=== PATIENT | female | born 1975 | race Caucasian/White ===

== ENCOUNTER 2025-06-06 13:44 | Emergency (ER) | payer SELFPAY ==
[~2025-06-06] VITALS: Ht 170.2 cm; Wt 98.0 kg
[2025-06-06 14:32] VITALS: BP 133/75; TEMP 98.2
[2025-06-06 14:34] VITALS: PULSE 91; RESP 16; O2SAT 96
--- NOTE | 2025-06-06 14:55 | ED.PDOC ---
History of Present Illness Chief Complaint: weakness Comments pt reportedly has a history of TIAs. pt started to feel profoundly weak at around 2-4pm yesterday. she has a hard time even lifting her head. no trouble speaking. no headaches Time Seen by MD: 13:54 Reviewed Notes: Nurses Notes, Medications, Allergies Allergies: Coded Allergies: NO KNOWN ALLERGIES (Unverified , 06/06/25) Information Source: Patient, Spouse Mode of Arrival: Wheelchair Severity: Moderate Timing: Days Duration: Since onset Past Medical History PAST MEDICAL HISTORY: TIA Surgical History: Denies all surgeries MYSQL DBA History: No Pertinent MYSQL DBA History Family History Family History: Reviewed,noncontributory to illness, No family hx of Cancer, No family hx of DM, No family hx of Heart halle, No family hx of HTN, No family hx o fKidney halle, No family hx of Liver halle, No family hx of Lung halle, No family hx of Stroke Social History Smoker: Non-Smoker Alcohol: Denies ETOH Use Drugs: Denies Drug Use Constitutional: denies: chills, diaphoresis, fatigue, fever, malaise, sweats, weakness, others EENTM: denies: blurred vision, double vision, ear bleeding, ear discharge, ear drainage, ear pain, ear ringing, eye pain, eye redness, hearing loss, mouth pain, mouth swelling, nasal discharge, nose bleeding, nose congestion, nose pain, photophobia, tearing, throat pain, throat swelling, voice changes, others Respiratory: denies: cough, hemoptysis, orthopnea, SOB at rest, shortness of breath, SOB with excertion, stridor, wheezing, others Cardiovascular: denies: chest pain, dizzy spells, diaphoresis, Dyspnea on exertion, edema, irregular heart beat, left arm pain, lightheadedness, palp itations, PND, syncope, others Gastrointestinal: denies: abdomen distended, abdominal pain, blood streaked bowels, constipated, diarrhea, dysphagia, difficulty swallowing, hematemesis, melena, nausea, poor appetite, poor fluid intake, rectal bleeding, rectal pain, vomiting, others Genitourinary: denies: abnormal vagina bleeding, burning, dyspareunia, dysuria, flank pain, frequency, hematuria, incontinence, pain, , vagina discharge, urgency, others Neurological: reports: weakness; denies: dizziness, fainting, headache, left sided numbness, left sided weakness, numbness, paresthesia, pre-existing deficit, right sided numbness, right sided weakness, seizure, speech problems, tingling, tremors, others Musculoskeletal: denies: back pain, gout, joint pain, joint swelling, muscle pain, muscle stiffness, neck pain, others Integumetry: denies: bruises, change in color, change in hair/nails, dryness, laceration, lesions, lumps, rash, wounds, others Allergic/Immunocompromised: denies: Difficulty Healing, Frequent Infections, Hives, Itching, others Hematologic/Lymphatic: denies: anemia, blood clots, easy bleeding, easy bruising, swollen glands, others Endocrine: denies: excessive hunger, excessive sweating, excessive thirst, excessive urination, flushing, intolerance to cold, intolerance to heat, unexplained weight gain, unexplained weight loss, others Psychiatric: denies: anxiety, bipolar disorder, depression, hopeless, panic disorder, schizophrenia, sleepless, suicidal, others All Other Systems: Reviewed and Negative Physical Exam General Appearance: No Apparent Distress, Normal, Other (sitting with head slumped to right, but can sit up and lean forward. normal speech, but anxious) HEENT: Normal ENT Inspection, Pharynx Normal, TMs Normal Neck: Full Range of Motion, Non-Tender, Normal, Normal Inspection Respiratory: Chest Non-Tender, Lungs Clear, No Accessory Muscle Use, No Respiratory Distress, Normal Breath Sounds Cardiovascular: No Edema, No JVD, No Murmur, No Gallop, Normal Peripheral Pulses, Regular Rate/Rhythm Breast Exam: Deferred Gastrointestinal: No Organomegaly, Non Tender, No Pulsatile Mass, Normal Bowel Sounds, Soft Genitalia: Deferred Pelvic: Deferred Rectal: Deferred Extremities: No calf tenderness, Normal capillary refill, Normal inspection, Normal range of motion, Non-tender, No pedal edema Musculoskeletal : Apperance: Normal Neurologic: Alert, dice table person II-XII nml as Tested, No Motor Deficits, Normal Affect, Normal Mood, No Sensory Deficits Cerebellar Function: Normal Reflexes: Normal Skin: Dry, Normal Color, Warm Lymphatic: No Adenopathy Was a procedure done? Was a procedure done?: No Differential Dx Considerations may include: CVA, anxiety, hypoglycemia, hypokalemia, MS exacerbation. X-Ray, Labs, Meds, VS Vital Signs Date Time Temp Pulse Resp B/P (MAP) Pulse Ox O2 Delivery O2 Flow Rate FiO2 06/06/25 14:34 91 16 96 Room Air* 0 21 06/06/25 14:32 98.2 91 18 133/75 (94) 96 98.2 06/06/25 13:48 98.1 96 17 118/80 97 98.1 Lab Test 06/06/25 16:53 06/06/25 16:25 06/06/25 15:05 Range/Units Troponin I High Sensitivity Pending < 3 L </=34 ng/L Urine Color Pending Urine Clarity Pending Urine pH Pending Urine Specific [place] Pending Urine Protein Pending Urine Ketones Pending Urine Blood Pending Urine Nitrite Pending Urine Bilirubin Pending Urine Urobilinogen Pending Urine Leukocyte Esterase Pending Urine RBC Pending Urine Microscopic WBC Pending Urine Squamous Epithelial Cells Pending Urine Bacteria Pending Urine Glucose Pending White Blood Count 9.5 4.4-10.8 10^3/uL Red Blood Count 5.38 H 4.0-5.20 10^6/uL Hemoglobin 16.9 H 12.2-16.2 g/dL Hematocrit 49.1 H 36.0-46.0 % Mean Corpuscular Volume 91.1 80.0-100.0 fL Mean Corpuscular Hemoglobin 31.3 28.0-32.0 pg Mean Corpuscular Hemoglobin Concent 34.4 32.0-36.0 g/dL Red Cell Distribution Width 12.7 11.8-14.3 % Platelet Count 261 140-450 10^3/uL Mean Platelet Volume 8.8 6.9-10.8 fL Neutrophils (%) (Auto) 81.3 H 37.0-80.0 % Lymphocytes (%) (Auto) 13.6 10.0-50.0 % Monocytes (%) (Auto) 4.3 0.0-12.0 % Eosinophils (%) (Auto) 0.3 0.0-7.0 % Basophils (%) (Auto) 0.5 0.0-2.0 % Neutrophils # (Auto) 7.7 1.6-8.6 10 ^3/uL Lymphocytes # (Auto) 1.3 0.4-5.4 10 ^3/uL Monocytes # (Auto) 0.4 0-1.3 10 ^3/uL Eosinophils # (Auto) 0 0-0.8 10 ^3/uL Basophils # (Auto) 0.1 0-0.2 10 ^3/uL Nucleated Red Blood Cells 0.0 % Sodium Level 143 136-145 mmol/L Potassium Level 3.6 3.5-5.1 mmol/L Chloride Level 105 98-107 mmol/L Carbon Dioxide Level 28 20-31 mmol/L Anion Gap 10 5-15 Blood Urea Nitrogen 18 9-23 mg/dL Creatinine 0.98 0.550-1.02 mg/dL Glomerular Filtration Rate Calc 71 >90 mL/min BUN/Creatinine Ratio 18.4 10.0-20.0 Serum Glucose 92 74-106 mg/dL Calcium Level 9.9 8.7-10.4 mg/dL Time of 1ST Reevaluation: 17:55 Reevaluation 1ST: Eloped Patient Education/Counseling: Pt Unresponsive (Eloped) Family Education/Counseling: No Family Present (Eloped) Comments This is a patient who presents with total body weakness. Started since 2-3 BM yesterday examination was fairly unremarkable other than the fact that the patient feels weak all over. The workup is unremarkable. When I went to assessed the patient again she was no where to be found. I look for the patient's several times as well as my scribe and patient is no were in the parking lot, lobby or anywhere in the ER or in the hallways. SEPSIS Sepsis Screen Date sepsis recognized/suspect: Jun 06, 2025 Time Sepsis recognized/suspect: 1348 Recent Procedure: No On Antibiotic Therapy: No Respiratory Rate >20: No Heart Rate >90: No Temp<36 C (96.8 F) or >38.3 C: No SBP <90 or MAP <65 mmHG: No New Acute Mental Status Change: No Is the patient on CPAP, BIPAP,: No Physician Orders Continuous Ekg Monitoring 08,12,16,20,00,04 (06/06/25 14:44) Electrocardigram (06/06/25 14:44) Chest Xray 1 View (06/06/25 14:44) Head Without Contrast (06/06/25 14:44) Urinalysis (06/06/25 14:44) Troponin-I Hs (06/06/25 15:44) Troponin-I Hs (06/06/25 17:44) Electrocardigram (06/06/25 15:44) Electrocardigram (06/06/25 17:44) Vital Signs Date Time Temp Pulse Resp B/P (MAP) Pulse Ox O2 Delivery O2 Flow Rate FiO2 06/06/25 14:34 91 16 96 Room Air* 0 21 06/06/25 14:32 98.2 91 18 133/75 (94) 96 98.2 06/06/25 13:48 98.1 96 17 118/80 97 98.1 Laboratory Tests Test 06/06/25 15:05 White Blood Count 9.5 10^3/uL (4.4-10.8) Departure 1 Departure Time of Disposition: 17:56 Impression: Primary Impression: Generalized weakness Disposition: 07 LEFT AWOL/ELOPED Condition: Other (Unknown) Critical Care Note Critical Care Time?: No Stability Stability form required: CHRISTIE Osborne MD Jun 06, 2025 14:55
--- NOTE | 2025-06-06 15:15 | DVH ---
CHEST RADIOGRAPH Indication: weakness Technique: Single frontal view of the chest was obtained Comparison: None FINDINGS: Lines and Tubes: None Lungs: No focal consolidation. Bronchovascular crowding due to low lung volumes with diffuse interstitial prominence. Of bilateral hemidiaphragm. No pneumothorax. Cardiomediastinal contours: Mild cardiomegaly which may be from low lung volumes. Bones: No acute osseous abnormality. IMPRESSION: Bronchovascular crowding due to low lung volumes with possible Bibasilar atelectasis. Underlying pulmonary vascular congestion can not be completely excluded.
--- NOTE | 2025-06-06 15:29 | DVH ---
CT HEAD WITHOUT CONTRAST Indication: weakness EXAM DATE: 06/06/2025 02:54 PM COMPARISON: None TECHNIQUE: CT of the head without intravenous contrast. RADIATION DOSE: CTDIvol: 51 mGy, DLP: 811 mGy*cm FINDINGS: There is no intracranial hemorrhage. There is no extra-axial fluid, mass, mass effect or midline shift. The ventricles are midline and normal in size. Basilar cisterns are patent. Bey-white differentiation is maintained. The mastoids are well pneumatized. Sphenoid and posterior ethmoid sinus disease.. Imaged portion of the orbits are unremarkable. IMPRESSION: No intracranial hemorrhage or mass effect.
[2025-06-06 15:59] LABS: Hematocrit 49.1 % (36.0-46.0); Hemoglobin 16.9 g/dL (12.2-16.2); Mean Corpuscular Hemoglobin 31.3 pg (28.0-32.0); Mean Corpuscular Volume 91.1 fL (80.0-100.0); Nucleated Red Blood Cells % 0.0 %
[2025-06-06 16:02] LABS: Chloride 105 mmol/L (98-107); Potassium 3.6 mmol/L (3.5-5.1); Sodium 143 mmol/L (136-145)
[2025-06-06 16:03] LABS: Anion Gap 10 (5-15); Calcium 9.9 mg/dL (8.7-10.4); Carbon Dioxide 28 mmol/L (20-31)
[2025-06-06 16:08] LABS: BUN/Creatinine Ratio 18.4 (10.0-20.0); Blood Urea Nitrogen 18 mg/dL (9-23); Glucose 92 mg/dL (74-106)
[2025-06-06 17:56] LABS: Urine Protein, UAD TRACE (Negative)
== END 2025-06-06 20:52 | disposition left against medical advice (07) ==
LOC: ER 13:44
DX: R53.1 Weakness (principal); R42 Dizziness and giddiness; Z86.73 Personal history of transient ischemic attack (TIA), and cerebral infarction without residual deficits; Z79.899 Other long term (current) drug therapy
CPT/HCPCS: 36415; 70450; 71045; 80048; 81001; 84484; 85025

== ENCOUNTER 2025-07-03 15:25 | Inpatient (IN) | payer SELFPAY ==
[~2025-07-03] VITALS: Ht 170.2 cm; Wt 105.5 kg
--- NOTE | 2025-07-03 16:14 | DVH ---
INDICATION: SOB TECHNIQUE: Frontal view of the chest. COMPARISON: XY CHEST XRAY 1 VIEW on DOS: 06/06/25 FINDINGS: . The heart and mediastinal contours are grossly unremarkable. There is no evidence of pleural disease. The lungs are clear. The bony structures of the chest are intact without fracture. IMPRESSION: 1. No evidence of acute disease.
--- NOTE | 2025-07-03 17:38 | ED.PDOC ---
SOB-HPI HPI Comments 50 y/o M, presents to the ED for CC of shortness of breath. Patient states, she has been experiencing symptoms of shortness of breath x2days. Chief Complaint: Shortness of Breath Time Seen by MD: 17:15 Reviewed notes: Nurses Notes, Medications, Allergies Information Source: Patient Mode of Arrival: Wheelchair Severity: Moderate Timing: Days Duration: Since onset Context: Spontaneous Onset PE Risk Factors: None History of: None Prehospital treatment: None Modifying Factors: Nothing Associated Signs and Symptoms: None Past Medical History PAST MEDICAL HISTORY: TIA Surgical History: Denies all surgeries COLLEGE AND CAREER COUNSELOR History: No Pertinent COLLEGE AND CAREER COUNSELOR History Family History Family History: Reviewed,noncontributory to illness, No family hx of Cancer, No family hx of DM, No family hx of Heart halle, No family hx of HTN, No family hx ofKidney halle, No family hx of Liver halle, No family hx of Lung halle, No family hx of Stroke Social History Smoker: Non-Smoker Alcohol: Denies ETOH Use Drugs: Denies Drug Use Lives In: Home Constitutional: denies: chills, diaphoresis, fatigue, fever, malaise, sweats, weakness, others EENTM: denies: blurred vision, double vision, ear bleeding, ear discharge, ear drainage, ear pain, ear ringing, eye pain, eye redness, hearing loss, mouth pain, mouth swelling, nasal discharge, nose bleeding, nose congestion, nose pain, photophobia, tearing, throat pain, throat swelling, voice changes, others Respiratory: reports: shortness of breath; denies: cough, hemoptysis, orthopnea, SOB at rest, SOB with excertion, stridor, wheezing, others Cardiovascular: denies: chest pain, dizzy spells, diaphoresis, Dyspnea on exertion, edema, irregular heart beat, left arm pain, lightheadedness, palpitations, PND, syncope, others Gastrointestinal: denies: abdomen distended, abdominal pain, blood streaked bowels, constipated, diarrhea, dysphagia, difficulty swallowing, hematemesis, melena, nausea, poor appetite, poor fluid intake, rectal bleeding, rectal pain, vomiting, others Genitourinary: denies: abnormal vagina bleeding, burning, dyspareunia, dysuria, flank pain, frequency, hematuria, incontinence, pain, , vagina discharge, urgency, others Neurological: denies: dizziness, fainting, headache, left sided numbness, left sided weakness, numbness, paresthesia, pre-existing deficit, right sided numbness, right sided weakness, seizure, speech problems, tingling, tremors, weakness, others Musculoskeletal: denies: back pain, gout, joint pain, joint swelling, muscle pain, muscle stiffness, neck pain, others Integumetry: denies: bruises, change in color, change in hair/nails, dryness, laceration, lesions, lumps, rash, wounds, others Allergic/Immunocompromised: denies: Difficulty Healing, Frequent Infections, Hives, Itching, others Hematologic/Lymphatic: denies: anemia, blood clots, easy bleeding, easy bruising, swollen glands, others Endocrine: denies: excessive hunger, excessive sweating, excessive thirst, excessive urination, flushing, intolerance to cold, intolerance to heat, unexplained weight gain, unexplained weight loss, others Psychiatric: denies: anxiety, bipolar disorder, depression, hopeless, panic disorder, schizophrenia, sleepless, suicidal, others All Other Systems: Reviewed and Negative Physical Exam General Appearance: Moderate Distress HEENT: Normal ENT Inspection, Pharynx Normal, TMs Normal Neck: Full Range of Motion, Non-Tender, Normal, Normal Inspection Respiratory: Other (Coarse breath sounds) Cardiovascular: No Edema, No JVD, No Murmur, No Gallop, Normal Peripheral Pulses, Regular Rate/Rhythm Breast Exam: Deferred Gastrointestinal: No Organomegaly, Non Tender, No Pulsatile Mass, Normal Bowel Sounds, Soft Genitalia: Deferred Pelvic: Deferred Rectal: Deferred Extremities: No calf tenderness, Normal capillary refill, Normal inspection, Normal range of motion, Non-tender, No pedal edema Musculoskeletal : Apperance: Normal Neurologic: Alert, cashier office II-XII nml as Tested, No Motor Deficits, Normal Affect, Normal Mood, No Sensory Deficits Cerebellar Function: NOT DONE Reflexes: NOT DONE Skin: Dry, Normal Color, Warm Peripheral Pulses: 3+ Radial (R), 3+ Radial (L) Lymphatic: No Adenopathy Was a procedure done? Was a procedure done?: No Differential Dx Differential Diagnosis: Anxiety, Asthma, Bronchitis, CHF, COPD, Pneumonia X-Ray, Labs, Meds, VS Vital Signs Date Time Temp Pulse Resp B/P (MAP) Pulse Ox O2 Delivery O2 Flow Rate FiO2 12/21/25 17:02 85 17 100 Room Air 07/03/25 17:02 98.9 85 16 108/74 (85) 100 98.9 07/03/25 16:05 97.8 94 20 113/85 (94) 95 97.8 07/03/25 15:35 124 07/03/25 15:27 98.1 118 18 114/81 96 98.1 Patient alert. Vitals stable. Came in because of shortness a breath. Answering questions. Saturation pristine on room air. Continues to have shortness a breath. Chest x-ray reviewed does not show any acute changes. Possible early pneumonia. Explained to the patient. Continue monitoring. Time of 1ST Reevaluation: 17:45 Reevaluation 1ST: Unchanged Patient Education/Counseling: Diagnosis, Treatment Family Education/Counseling: Diagnosis, Treatment SEPSIS Sepsis Screen Date sepsis recognized/suspect: Jul 03, 2025 Time Sepsis recognized/suspect: 1526 Recent Procedure: No On Antibiotic Therapy: No Respiratory Rate >20: No Heart Rate >90: Yes Temp<36 C (96.8 F) or >38.3 C: No SBP <90 or MAP <65 mmHG: No New Acute Mental Status Change: No Is the patient on CPAP, BIPAP,: No Physician Orders Chest Portable (07/03/25 15:42) Electrocardigram (07/03/25 15:39) Complete Blood Count (07/03/25 16:51) Urinalysis (07/03/25 16:51) Basic Metabolic Panel (07/03/25 16:51) Vital Signs Date Time Temp Pulse Resp B/P (MAP) Pulse Ox O2 Delivery O2 Flow Rate FiO2 07/03/25 17:02 85 17 100 Room Air 07/03/25 17:02 98.9 85 16 108/74 (85) 100 98.9 07/03/25 16:05 97.8 94 20 113/85 (94) 95 97.8 07/03/25 15:35 124 07/03/25 15:27 98.1 118 18 114/81 96 98.1 Departure 1 Departure Time of Disposition: 17:40 Impression: Primary Impression: Pneumonitis Disposition: 09 ADMITTED INPATIENT Admit to: Med Surg Condition: Guarded Critical Care Note Critical Care Time?: No Stability Stability form required: No Heart Score Heart Score: Heart Score Response (Comments) Value History N/A 0 EKG N/A 0 Age N/A 0 Risk Factors N/A 0 Troponin N/A 0 Total 0 I personally scribed for CLARITZA ANGELA MD ([email or web address]) on 07/03/25 at 17:38. Electronically submitted by Julieta Ardon ([email or web address]). CLARITZA ANGELA MD Jul 03, 2025 17:38
[2025-07-03 17:48] LABS: Hematocrit 48.6 % (36.0-46.0); Hemoglobin 16.6 g/dL (12.2-16.2); Mean Corpuscular Hemoglobin 31.2 pg (28.0-32.0); Mean Corpuscular Volume 91.3 fL (80.0-100.0); Nucleated Red Blood Cells % 0.1 %
[2025-07-03 17:52] LABS: Potassium 3.7 mmol/L (3.5-5.1); Sodium 145 mmol/L (136-145)
[2025-07-03 17:53] LABS: Anion Gap 8 (5-15); Calcium 10.0 mg/dL (8.7-10.4); Carbon Dioxide 27 mmol/L (20-31)
[2025-07-03 17:58] LABS: BUN/Creatinine Ratio 9.5 (10.0-20.0); Blood Urea Nitrogen 10 mg/dL (9-23); Glucose 79 mg/dL (74-106)
[2025-07-03 17:59] LABS: Chloride 110 mmol/L (98-107)
[2025-07-03 19:12] LABS: Urine Protein, UAD Negative (Negative)
[2025-07-03] MEDS ORDERED: ONDANSETRON HCL 4 MG/2 ML VIAL IV PRN (19:45)
[2025-07-03] MEDS: methylPREDNISolone SOD SUCC 125 MG/2 ML VL IV ONE (19:55)
[2025-07-03 21:13] LABS: COVID19 ANTIGEN SOFIA FIA NEGATIVE (NEGATIVE)
--- NOTE | 2025-07-03 21:20 | DVHHP2 ---
History of Present Illness Reason for Visit: Shortness for breath History of Present Illness 50-year-old female presents for evaluation of shortness for breath. Patient reports a two day history of worsening shortness for breath with associated productive cough with brown phlegm with intermittent fever. Denies chest pain. No other acute complaints. Past Medical History Seizure, thyroid, TIA Past Surgical History Denies Family History Noncontributory Smoke: No ALCOHOL: none Drugs: None Lives: with Family Review of Systems Review of Systems Review of systems are currently negative otherwise addressed in HPI. Allergies: Coded Allergies: NO KNOWN ALLERGIES (Unverified , 06/06/25) Medications Current Medications Medications Dose Ordered Sig/Liv Route Start Time Stop Time Status Last Admin Dose Admin Albuterol 2.5 mg Q6HPRN PRN NEB 07/03/25 19:45 Ondansetron HCl 4 mg Q4HP PRN IV 07/03/25 19:45 Acetaminophen 650 mg Q6HP PRN PO 07/03/25 19:45 Exam Vital Signs Vital Signs Date Time Temp Pulse Resp B/P (MAP) Pulse Ox O2 Delivery O2 Flow Rate FiO2 07/03/25 19:50 Room Air* 0 21 07/03/25 19:34 98.2 88 18 150/78 (102) 97 98.2 Exam Gen: 50-year-old female in mild distress Skin: Warm, dry, normal color and texture, no rash. HEENT: Normocephalic atraumatic, mucous membranes moist and pink. Neck: Cervical and supraclavicular nodes normal without enlargement, trachea is midline, thyroid gland is normal without masses. Pulmonary: Clear to auscultation and percussion bilaterally. Cardiac: Regular rate and rhythm. No murmur Abdomen: Soft, nontender, nondistended, bowel sounds present all 4 quadrants, no guarding, no rigidity, no organomegaly. Extremities: No cyanosis, clubbing, no edema Neuro: Cranial nerves II through XII grossly intact, normal affect and speech, no focal motor deficits. Labs/Xrays ORDERING PHYSICIAN: CLARITZA ANGELA MD PROCEDURE(s): CXRP - CHEST PORTABLE REASON: SOB ORDER NUMBER(s): [id number], ACCESSION NUMBER(s): [id number] INDICATION: SOB TECHNIQUE: Frontal view of the chest. COMPARISON: XY CHEST XRAY 1 VIEW on DOS: 11/24/25 FINDINGS: . The heart and mediastinal contours are grossly unremarkable. There is no evidence of pleural disease. The lungs are clear. The bony structures of the chest are intact without fracture. IMPRESSION: 1. No evidence of acute disease. Labs Test 07/03/25 19:25 07/03/25 18:09 07/03/25 17:19 Range/Units Influenza Type A Antigen Negative Negative Influenza Type B Antigen Negative Negative SARS-CoV-2 Antigen (Rapid) Negative NEGATIVE Urine Color Yellow Yellow Urine Clarity Clear Clear Urine pH 5.5 5.0-9.0 Urine Specific [place] 1.023 1.001-1.035 Urine Protein Negative Negative Urine Ketones Trace Negative Urine Blood Negative Negative /uL Urine Nitrite Negative Negative Urine Bilirubin Negative Negative Urine Urobilinogen Normal Negative mg/dL Urine Leukocyte Esterase Negative Negative /uL Urine RBC 1 0 - 4 /hpf Urine Microscopic WBC 1 0-5 /HPF Urine Squamous Epithelial Cells Few <5 /hpf Urine Bacteria None seen None Seen /hpf Urine Mucus Few None Seen Urine Glucose Normal Normal mg/dL White Blood Count 6.4 4.4-10.8 10^3/uL Red Blood Count 5.32 H 4.0-5.20 10^6/uL Hemoglobin 16.6 H 12.2-16.2 g/dL Hematocrit 48.6 H 36.0-46.0 % Mean Corpuscular Volume 91.3 80.0-100.0 fL Mean Corpuscular Hemoglobin 31.2 28.0-32.0 pg Mean Corpuscular Hemoglobin Concent 34.2 32.0-36.0 g/dL Red Cell Distribution Width 13.0 11.8-14.3 % Platelet Count 258 140-450 10^3/uL Mean Platelet Volume 8.4 6.9-10.8 fL Neutrophils (%) (Auto) 46.9 37.0-80.0 % Lymphocytes (%) (Auto) 41.5 10.0-50.0 % Monocytes (%) (Auto) 10.0 0.0-12.0 % Eosinophils (%) (Auto) 1.0 0.0-7.0 % Basophils (%) (Auto) 0.6 0.0-2.0 % Neutrophils # (Auto) 3.0 1.6-8.6 10 ^3/uL Lymphocytes # (Auto) 2.7 0.4-5.4 10 ^3/uL Monocytes # (Auto) 0.6 0-1.3 10 ^3/uL Eosinophils # (Auto) 0.1 0-0.8 10 ^3/uL Basophils # (Auto) 0 0-0.2 10 ^3/uL Nucleated Red Blood Cells 0.1 % Sodium Level 145 136-145 mmol/L Potassium Level 3.7 3.5-5.1 mmol/L Chloride Level 110 H 98-107 mmol/L Carbon Dioxide Level 27 20-31 mmol/L Anion Gap 8 5-15 Blood Urea Nitrogen 10 9-23 mg/dL Creatinine 1.05 H 0.550-1.02 mg/dL Glomerular Filtration Rate Calc 65 >90 mL/min BUN/Creatinine Ratio 9.5 L 10.0-20.0 Serum Glucose 79 74-106 mg/dL Calcium Level 10.0 8.7-10.4 mg/dL SEPSIS Sepsis Screen Date sepsis recognized/suspect: Jul 03, 2025 Time Sepsis recognized/suspect: 1526 Recent Procedure: No On Antibiotic Therapy: No Respiratory Rate >20: No Heart Rate >90: Yes Temp<36 C (96.8 F) or >38.3 C: No SBP <90 or MAP <65 mmHG: No New Acute Mental Status Change: No Is the patient on CPAP, BIPAP,: No Physician Orders Chest Portable (07/03/25 15:42) Electrocardigram (07/03/25 15:39) Albuterol Medneb (Ventolin Medneb) (07/03/25 19:45) Basic Metabolic Panel (07/04/25 04:00) Admit (07/03/25 19:44) Ondansetron Hcl (Zofran) (07/03/25 19:45) Condition: Stable (07/03/25 19:44) Acetaminophen Tablet (Tylenol Tablet) (07/03/25 19:45) Bedrest With Bathroom Privileg (07/03/25 19:44) Levetiracetam Tablet (Keppra Tablet) (07/03/25 22:00) Levothyroxine Tablet (Synthroid Tablet) (07/04/25 06:00) Pantoprazole Tablet (Protonix Tablet) (07/04/25 06:00) Azithromycin 500mg/250ml (Zithromax 500m (07/04/25 10:00) Azithromycin 500mg/250ml (Zithromax 500m (07/03/25 21:15) Vital Signs Date Time Temp Pulse Resp B/P (MAP) Pulse Ox O2 Delivery O2 Flow Rate FiO2 07/03/25 19:50 Room Air* 0 21 07/03/25 19:34 98.2 88 18 150/78 (102) 97 98.2 07/03/25 17:02 85 17 100 Room Air 07/03/25 17:02 98.9 85 16 108/74 (85) 100 98.9 07/03/25 16:05 97.8 94 20 113/85 (94) 95 97.8 07/03/25 15:35 124 07/03/25 15:27 98.1 118 18 114/81 96 98.1 Laboratory Tests Test 07/03/25 17:19 White Blood Count 6.4 10^3/uL (4.4-10.8) Medications Medications Dose Ordered Sig/Liv Route Start Time Stop Time Status Last Admin Dose Admin Ceftriaxone Sodium 50 ml @ 100 mls/hr ONCE ONCE IV 07/03/25 17:00 07/03/25 17:29 DC 07/03/25 19:56 100 MLS/HR Methylprednisolone Sodium Succinate 125 mg ONCE ONCE IV 07/03/25 17:00 07/03/25 17:01 DC 07/03/25 19:55 125 MG Assessment/Plan Assessment/Plan Assessment Acute pneumonitis Acute respiratory distress History of seizures Plan Admit the patient to Med surge to the hospitalist Rick Med nebs Resume home medications Continue treatment per orders. Plan discussed with: Patient My Orders Orders - SANFORD JOHNSON AGACNP Procedure Category Date Status Time Albuterol Medneb PHA 07/03/25 In Process (Ventolin Medneb) 19:45 Basic Metabolic Panel LAB 07/04/25 Verified 04:00 Admit ADMIT 07/03/25 Transmitted 19:44 Ondansetron Hcl PHA 07/03/25 In Process (Zofran) 19:45 Condition: Stable OSCAR 07/03/25 In Process 19:44 Acetaminophen Tablet PHA 07/03/25 In Process (Tylenol Tablet) 19:45 Bedrest With Bathroom OSCAR 07/03/25 In Process Privileg 19:44 Levetiracetam Tablet PHA 07/03/25 Transmitted (Keppra Tablet) 22:00 Levothyroxine Tablet PHA 07/04/25 Transmitted (Synthroid Tablet) 06:00 Pantoprazole Tablet PHA 07/04/25 Transmitted (Protonix Tablet) 06:00 Azithromycin PHA 07/04/25 Transmitted 500mg/250ml 10:00 Azithromycin PHA 07/03/25 Transmitted 500mg/250ml 21:15 Date of Service: Jul 03, 2025 Billing Provider: SANFORD JOHNSON Common Visit Codes: [id number] INP/OBS CARE (MOD) SANFORD JOHNSON Jul 03, 2025 21:20
[2025-07-03] MEDS: levETIRAcetam 500 MG TAB PO SCH (22:00)
[2025-07-03 22:20] VITALS: BP 117/72; PULSE 65; RESP 17; TEMP 98; O2SAT 95
[2025-07-03] MEDS: AZITHROMYCIN 500MG/250ML 250 ML IV ONE (22:23)
[2025-07-03 22:37] VITALS: BP 150/78; PULSE 88; RESP 16; TEMP 98.2; O2SAT 97
[2025-07-03] MEDS ORDERED: LEVO137T3 PO (23:12)
[2025-07-03] MEDS ORDERED: ESCI20TA PO (23:12)
[2025-07-03] MEDS ORDERED: LEVE500T40 PO (23:14)
[2025-07-03] MEDS ORDERED: LISD30CA4 PO (23:17)
[2025-07-03] MEDS ORDERED: PANT40TA2 PO (23:17)
[2025-07-03] MEDS ORDERED: ZOFR4T PO (23:18)
[2025-07-03 23:57] VITALS: BP 117/72; PULSE 65; RESP 19; O2SAT 93
[2025-07-04] VITALS (12 sets, daily range): BP systolic 107–121; BP diastolic 58–79; PULSE 55–89; RESP 13–18; TEMP 97.6–98.1; O2SAT 91–100
[2025-07-04] MEDS: BACLOFEN 10 MG TAB PO ONE (00:23)
[2025-07-04] MEDS: PANTOPRAZOLE 40 MG TAB PO SCH (05:50)
[2025-07-04] MEDS: LEVOTHYROXINE SODIUM 50 MCG TAB PO SCH (05:51)
[2025-07-04] MEDS: ALBUTEROL SULF 2.5 MG/0.5ML(0.5%) NEB SOLN NEB PRN (06:05)
[2025-07-04] MEDS: ACETAMINOPHEN 325 MG TAB PO PRN (06:50)
[2025-07-04 07:23] LABS: Potassium 4.1 mmol/L (3.5-5.1); Sodium 144 mmol/L (136-145)
[2025-07-04 07:24] LABS: Anion Gap 9 (5-15); Carbon Dioxide 21 mmol/L (20-31)
[2025-07-04 07:25] LABS: Calcium 10.1 mg/dL (8.7-10.4)
[2025-07-04 07:29] LABS: Chloride 114 mmol/L (98-107)
[2025-07-04 07:30] LABS: BUN/Creatinine Ratio 16.3 (10.0-20.0); Blood Urea Nitrogen 14 mg/dL (9-23)
[2025-07-04 07:31] LABS: Glucose 158 mg/dL (74-106)
[2025-07-04] MEDS: AZITHROMYCIN 500MG/250ML 250 ML IV SCH (10:23)
[2025-07-04] MEDS: NICOTINE 7MG/24HR TOPICAL PATCH TD ONE (10:45)
--- NOTE | 2025-07-04 12:13 | ECG ---
[facility] Test Date: 2025-07-03 Test Time: 15:35:46 Pat Name: DIONNE MARTINEZ Department: ED Room: 0284 A Gender: F Shuttle Spotter: dr BETANCOURTB: 1975 Requested By: CLARITZA ANGELA Order Number: [id number] Reading MD: Amrit Baldwin Measurements Intervals [place] Rate: 124 P: 76 VA: 150 QRS: 66 QRSD: 85 T: -17 QT: 329 QTc: 473 Interpretive Statements Sinus tachycardia Borderline T abnormalities, anterior leads Electronically Signed On 07-04-2025 15:28:39 PST by Amrit Baldwin Please click the below link to view image of tracing.
[2025-07-04] MEDS: KETOROLAC TROMETH 30 MG/ML 1ML VIAL IV ONE (12:54)
[2025-07-04 13:02] LABS: Alanine Aminotransferase 36 U/L (7-40); Alkaline Phosphatase 69 U/L (46-116); Bilirubin, Total 0.3 mg/dL (0.2-1.0); Total Protein 7.7 g/dL (5.7-8.2)
[2025-07-04 13:03] LABS: Albumin 4.9 g/dL (3.2-4.8); Bilirubin, Direct < 0.1 mg/dL (<0.3)
[2025-07-04 13:40] LABS: Hematocrit 49.9 % (36.0-46.0); Hemoglobin 17.2 g/dL (12.2-16.2); Mean Corpuscular Hemoglobin 30.8 pg (28.0-32.0); Mean Corpuscular Volume 89.3 fL (80.0-100.0); Nucleated Red Blood Cells % 0.0 %
[2025-07-04 13:50] LABS: Lipase 33 U/L (12-53)
[2025-07-04] MEDS: HYDROcodone-ACET 5/325MG TAB PO ONE (14:30)
[2025-07-04] MEDS: LACTATED RINGER'S 1,000 ML IV ONE (14:30)
--- NOTE | 2025-07-04 21:11 | DVHPNRES ---
Progress Note Date Seen: Jul 04, 2025 Resident Creating Document: CRISTIN VALLADARES RESIDENT Medical Necessity Reason Pt with a Central, PICC or Fol: No Subjective Review of Systems Colleen Everett, 50-year-old female with past medical history of seizure disorder, hypothyroidism, ADHD, GERD, anxiety and depression presented to the ER accompanied by with the complaints of increasing dry cough and exertional shortness of breaths. She reports having nausea, vomiting, diarrhea since June 15 on her daughter's birthday, she went to [facility] and was treated with ciprofloxacin and metronidazole. No stool studies were done. After that, patient experiences intractable cough and shortness of breaths, weakness. The patient starts feeling dizzy on her way to the bathroom, she reports she loses balance while walking, he attributes this to her not being able to eat. No recent travel or sick contacts reported. She denies shortness of breath, fever, urinary or symptoms or any other complaints. Past medical history: As above Past surgical history: Hysterectomy 8 years ago Allergies: No known allergies Smoking: Patient actively smokes Marijuana: Occasionally Alcohol: Occasional PCP: Full code Objective vital signs Vital Sign Date Time Temp Pulse Resp B/P (MAP) Pulse Ox O2 Delivery O2 Flow Rate FiO2 07/04/25 19:10 89 18 100 07/04/25 19:00 Room Air* 0 21 07/04/25 17:00 97.9 110/62 (78) 97.9 Total Intake and Output 07/03/25 07/03/25 07/04/25 15:00 23:00 07:00 Intake Total 50 ml 100 ml Balance 50 ml 100 ml medications Current Medications Medications Dose Ordered Sig/Liv Route Start Time Stop Time Status Last Admin Dose Admin Albuterol 2.5 mg Q6HPRN PRN NEB 07/03/25 19:45 07/04/25 19:00 2.5 MG Ondansetron HCl 4 mg Q4HP PRN IV 07/03/25 19:45 Acetaminophen 650 mg Q6HP PRN PO 07/03/25 19:45 07/04/25 06:50 650 MG Levetiracetam 750 mg BID PO 07/03/25 22:00 07/04/25 10:23 750 MG Levothyroxine Sodium 125 mcg QAM@0600 PO 07/04/25 06:00 07/04/25 05:51 125 MCG Pantoprazole Sodium 40 mg DAILY@0600 PO 07/04/25 06:00 07/04/25 05:50 40 MG Azithromycin 250 ml @ 125 mls/hr DAILY IV 07/04/25 10:00 07/04/25 10:23 125 MLS/HR Ceftriaxone Sodium 50 ml @ 100 mls/hr DAILY@09 IV 07/05/25 09:00 Nicotine 1 patch DAILY TD 07/05/25 10:00 Examination Pt is lying on bed General Appearance: Alert, Oriented X3, Cooperative, Mild distress HEENT: Atraumatic, Mucous membranes moist/pink Respiratory: Clear to auscultation, Normal air movement, No added sounds Cardiovascular: Regular rate, Normal S1, Normal S2, No murmurs Abdominal/ : Active bowel sounds, Soft, no distention, no tenderness Extremities: No edema, Normal pulses, No tenderness/swelling Skin: No Significant rash, except past surgical scars Neuro: Normal speech, sensorimotor deficits none Psych/Mental Status: Mental status NL, Mood NL Nurse was there as machine operator helper during examination laboratory and microbiology Laboratory Tests 07/04/25 06:52 Test 07/04/25 06:52 Range/Units Serum Glucose 158 H 74-106 mg/dL Microbiology Date/Time Source Procedure Growth Status 07/04/25 10:36 Stool Ordered Labs and/or images reviewed: Labs reviewed by me, Image(s) reviewed by me Problem List/Assessment/Plan Problem List/Assessment/Plan Pneumonia due to Gram-positive or Gram-negative organism -ceftriaxone -azithromycin -breathing treatments -COVID and flu negative -Tylenol Hypothyroidism -levothyroxine 137 mcg daily Seizure disorder -Keppra 750 b.i.d. Depression and anxiety Escitalopram Smoking -counseled regarding cessation for more than 14 minutes -nicotine patch GI prophylaxis: Pantoprazole DVT prophylaxis: SCDs Diet: Regular Goals of care discussed with the patient for more than 27 minutes: Full code status Case discussed with Dr. Merritt , patient and RN Plan discussed with: Patient, Other My Orders My Orders Orders - CRISTIN VALLADARES Procedure Category Date Status Time Complete Blood Count LAB 07/05/25 Verified 04:00 Comprehensive LAB 07/05/25 Verified Metabolic Panel 04:00 Visit Coding STANDARD RES Billing Provider: GLENDA PASTRANA MD Date of Service if different f: Jul 04, 2025 Common Visit Codes: [id number] INP/OBS CARE(HIGH) CRISTIN VALLADARES Jul 04, 2025 21:11 GLENDA PASTRANA MD Jul 05, 2025 22:15
[2025-07-05] VITALS (11 sets, daily range): BP systolic 101–141; BP diastolic 65–91; PULSE 54–85; RESP 17–19; TEMP 97.5–98.3; O2SAT 95–100
[2025-07-05] MEDS: BACLOFEN 10 MG TAB PO ONE (01:51)
[2025-07-05 07:27] LABS: Hematocrit 42.8 % (36.0-46.0); Hemoglobin 14.4 g/dL (12.2-16.2); Mean Corpuscular Hemoglobin 30.4 pg (28.0-32.0); Mean Corpuscular Volume 90.3 fL (80.0-100.0); Nucleated Red Blood Cells % 0.0 %
[2025-07-05 07:43] LABS: Alanine Aminotransferase 24 U/L (7-40); Albumin 3.8 g/dL (3.2-4.8); Alkaline Phosphatase 50 U/L (46-116); Anion Gap 8 (5-15); BUN/Creatinine Ratio 27.8 (10.0-20.0); Blood Urea Nitrogen 20 mg/dL (9-23); Carbon Dioxide 28 mmol/L (20-31); Glucose 95 mg/dL (74-106); Potassium 3.8 mmol/L (3.5-5.1); Total Protein 6.0 g/dL (5.7-8.2)
[2025-07-05 07:44] LABS: Bilirubin, Total 0.4 mg/dL (0.2-1.0); Calcium 8.7 mg/dL (8.7-10.4); Chloride 111 mmol/L (98-107); Sodium 147 mmol/L (136-145)
[2025-07-05] MEDS: CITALOPRAM HYDROBR 20 MG TAB PO SCH (09:29)
[2025-07-05] MEDS: NICOTINE 7MG/24HR TOPICAL PATCH TD SCH (10:00)
--- NOTE | 2025-07-05 10:01 | DVH ---
CHEST RADIOGRAPH INDICATION: r/o pna TECHNIQUE: Single frontal view of the chest was obtained COMPARISON: XY CHEST PORTABLE on DOS: 07/03/25, XY CHEST XRAY 1 VIEW on DOS: 06/06/25 FINDINGS: Lines and Tubes: None Lungs: Congestion Pleura: No effusion. No pneumothorax. Cardiomediastinal contours: Unremarkable Bones: Unremarkable IMPRESSION: Increased interstital prominence. This may represent pulmonary vascular congestion and/or viral pneumonia. Clinical correlation advised.
[2025-07-05 11:16] LABS: Free T3 3.21 pg/mL (2.3-4.2)
[2025-07-05 11:17] LABS: Free T4 (Free Thyroxine) 1.6 ng/dL (0.89-1.76)
[2025-07-05] MEDS ORDERED: AZIT-74 PO (12:09)
[2025-07-05] MEDS ORDERED: FLUC150T38 PO (12:09)
[2025-07-05] MEDS ORDERED: ALBUAER3 IN (12:10)
--- NOTE | 2025-07-05 17:18 | DVHDSRES ---
Discharge Summary Date of Admission Resident Creating Document: CRISTIN VALLADARES Jul 03, 2025 at 19:44 Date of Discharge: Jul 05, 2025 Admitting Diagnosis Pneumonia due to Gram-positive or Gram-negative bacteria. Labs/Diagnostic Data: Laboratory Results Test 07/05/25 06:29 07/05/25 06:25 07/04/25 06:52 07/03/25 19:25 White Blood Count 7.9 10^3/uL (4.4-10.8) Red Blood Count 4.74 10^6/uL (4.0-5.20) Hemoglobin 14.4 g/dL (12.2-16.2) Hematocrit 42.8 % (36.0-46.0) Mean Corpuscular Volume 90.3 fL (80.0-100.0) Mean Corpuscular Hemoglobin 30.4 pg (28.0-32.0) Mean Corpuscular Hemoglobin Concent 33.7 g/dL (32.0-36.0) Red Cell Distribution Width 13.0 % (11.8-14.3) Platelet Count 220 10^3/uL (140-450) Mean Platelet Volume 8.7 fL (6.9-10.8) Neutrophils (%) (Auto) 45.9 % (37.0-80.0) Lymphocytes (%) (Auto) 48.8 % (10.0-50.0) Monocytes (%) (Auto) 4.3 % (0.0-12.0) Eosinophils (%) (Auto) 0.6 % (0.0-7.0) Basophils (%) (Auto) 0.4 % (0.0-2.0) Neutrophils # (Auto) 3.6 10 ^3/uL (1.6-8.6) Lymphocytes # (Auto) 3.9 10 ^3/uL (0.4-5.4) Monocytes # (Auto) 0.3 10 ^3/uL (0-1.3) Eosinophils # (Auto) 0 10 ^3/uL (0-0.8) Basophils # (Auto) 0 10 ^3/uL (0-0.2) Nucleated Red Blood Cells 0.0 % Sodium Level 147 mmol/L (136-145) Potassium Level 3.8 mmol/L (3.5-5.1) Chloride Level 111 mmol/L (98-107) Carbon Dioxide Level 28 mmol/L (20-31) Anion Gap 8 (5-15) Blood Urea Nitrogen 20 mg/dL (9-23) Creatinine 0.72 mg/dL (0.550-1.02) Glomerular Filtration Rate Calc 102 mL/min (>90) BUN/Creatinine Ratio 27.8 (10.0-20.0) Serum Glucose 95 mg/dL (74-106) Calcium Level 8.7 mg/dL (8.7-10.4) Total Bilirubin 0.4 mg/dL (0.2-1.0) Aspartate Amino Transferase (AST) 15 U/L (13-40) Alanine Aminotransferase (ALT) 24 U/L (7-40) Alkaline Phosphatase 50 U/L (46-116) Total Protein 6.0 g/dL (5.7-8.2) Albumin 3.8 g/dL (3.2-4.8) Free Thyroxine (T4) Calculated 1.60 ng/dL (0.89-1.76) Free Triiodothyronine (T3) pg/mL 3.21 pg/mL (2.3-4.2) Total Triiodothyronine (TT3) 1.10 ng/mL (0.60-1.81) Thyroid Stimulating Hormone (TSH) 0.30 uIU/mL (0.55-4.78) Beta HCG, Quantitative 4.8 mIU/mL (1.5-4.2) Direct Bilirubin < 0.1 mg/dL (<0.3) B-Type Natriuretic Peptide 55.87 pg/mL (0-100) Lipase 33 U/L (12-53) Influenza Type A Antigen Negative (Negative) Influenza Type B Antigen Negative (Negative) SARS-CoV-2 Antigen (Rapid) Negative (NEGATIVE) Test 07/03/25 18:09 Urine Color Yellow (Yellow) Urine Clarity Clear (Clear) Urine pH 5.5 (5.0-9.0) Urine Specific [place] 1.023 (1.001-1.035) Urine Protein Negative (Negative) Urine Ketones Trace (Negative) Urine Blood Negative /uL (Negative) Urine Nitrite Negative (Negative) Urine Bilirubin Negative (Negative) Urine Urobilinogen Normal mg/dL (Negative) Urine Leukocyte Esterase Negative /uL (Negative) Urine RBC 1 /hpf (0 - 4) Urine Microscopic WBC 1 /HPF (0-5) Urine Squamous Epithelial Cells Few /hpf (<5) Urine Bacteria None seen /hpf (None Seen) Urine Mucus Few (None Seen) Urine Glucose Normal mg/dL (Normal) Other Laboratory Tests 07/05/25 06:29 Brief Hx & Hospital Course: Dionne Everett, 50-year-old female with past medical history of seizure disorder, hypothyroidism, ADHD, GERD, anxiety and depression presented to the ER accompanied by with the complaints of increasing dry cough and exertional shortness of breaths. She reports having nausea, vomiting, diarrhea since June 15 on her daughter's birthday, she went to [facility] and was treated with ciprofloxacin and metronidazole. No stool studies were done. After that, patient experiences intractable cough and shortness of breaths, weakness. The patient starts feeling dizzy on her way to the bathroom, she reports she loses balance while walking, he attributes this to her not being able to eat. No recent travel or sick contacts reported. She denies shortness of breath, fever, urinary or symptoms or any other complaints. Past medical history: As above Past surgical history: Hysterectomy 8 years ago Allergies: No known allergies Smoking: Patient actively smokes Marijuana: Occasionally Alcohol: Occasional PCP: Full code Brief hospital course: On further evaluation patient was diagnosed with pneumonia. She was treated with ceftriaxone and azithromycin. She was given breathing treatments as necessary. COVID and flu was negative. Pain management was done with Tylenol. Levothyroxine was continued for hypothyroidism. Keppra was given for her seizure disorder. Home medication escitalopram was continued. Was counseled for smoking cessation and nicotine patch was continued throughout her stay. The day of discharge, patient reports improvement in her symptoms. She verbalized understanding of the treatment and discharge plan. The patient and was advised on follow up recommendations as well. Pt is lying on bed General Appearance: Alert, Oriented X3, Cooperative, Mild distress HEENT: Atraumatic, Mucous membranes moist/pink Respiratory: Clear to auscultation, Normal air movement, No added sounds Cardiovascular: Regular rate, Normal S1, Normal S2, No murmurs Abdominal/ : Active bowel sounds, Soft, no distention, no tenderness Extremities: No edema, Normal pulses, No tenderness/swelling Skin: No Significant rash, except past surgical scars Neuro: Normal speech, sensorimotor deficits none Psych/Mental Status: Mental status NL, Mood NL Nurse was there as reservoir engineer during examination Operations or Procedures PATIENT: DIONNE EVERETT ACCT: [id number] UNIT: [id number] : 1975 LOC: ER ROOM / BED: / AGE / SEX: 50 / F ADM STATUS: REG ER SERVICE [id number] ORDERING PHYSICIAN: CLARITZA ANGELA MD PROCEDURE(s): CXRP - CHEST PORTABLE REASON: SOB ORDER NUMBER(s): [id number], ACCESSION NUMBER(s): [id number] INDICATION: SOB TECHNIQUE: Frontal view of the chest. COMPARISON: XY CHEST XRAY 1 VIEW on DOS: 06/06/25 FINDINGS: . The heart and mediastinal contours are grossly unremarkable. There is no evidence of pleural disease. The lungs are clear. The bony structures of the chest are intact without fracture. IMPRESSION: 1. No evidence of acute disease. PATIENT: DIONNE EVERETT ACCT: [id number] UNIT: [id number] : 1975 LOC: [facility] ROOM / BED: [facility] / A AGE / SEX: 50 / F ADM STATUS: ADM IN SERVICE 0920 ORDERING PHYSICIAN: CRISTIN VALLADARES PROCEDURE(s): CXR1 - CHEST XRAY 1 VIEW REASON: r/o pna ORDER NUMBER(s): [id number], ACCESSION NUMBER(s): [id number] CHEST RADIOGRAPH INDICATION: r/o pna TECHNIQUE: Single frontal view of the chest was obtained COMPARISON: XY CHEST PORTABLE on DOS: 07/03/25, XY CHEST XRAY 1 VIEW on DOS: 06/06/25 FINDINGS: Lines and Tubes: None Lungs: Congestion Pleura: No effusion. No pneumothorax. Cardiomediastinal contours: Unremarkable Bones: Unremarkable IMPRESSION: Increased interstital prominence. This may represent pulmonary vascular congestion and/or viral pneumonia. Clinical correlation advised. Condition at Discharge: Stable Final Diagnosis/Problems List Pneumonia due to Gram-positive or Gram-negative organism Hypothyroidism Seizure disorder Depression and anxiety Smoking Discharge Disposition: Home Discharge Instruct/Medications Scheduled Azithromycin (Zithromax), 250 MG PO DAILY Escitalopram Oxalate (Lexapro), 1 TAB PO DAILY, (Reported) Fluconazole (Diflucan), 1 TAB PO ONCE Levetiracetam (Keppra), 750 MG PO BID, (Reported) Levothyroxine Sodium (Levothyroxine Sodium), 1 TAB PO DAILY, (Reported) Lisdexamfetamine Dimesylate (Vyvanse), 1 CAP PO DAILY, (Reported) Pantoprazole Sodium Sesquihydr (Protonix), 20 MG PO DAILY, (Reported) Scheduled PRN Albuterol Sulfate (Ventolin Mdi), 90 MCG IN Q6HPRN PRN Miscellaneous Medications Ondansetron Odt 4MG Tab (Zofran Po), 4 MG PO, (Reported) Discharge Statement: "Patient was advised to return to the ER or call 911 if any headaches, dizziness, shortness of breath, chest pain, abdominal pain, bleeding, fevers, or worsening of medical condition. Patient was counseled about treatment plan, medications, possible side effects, patientverbalized understanding. All questions were answered to the best of my ability. This discharge took greater then 30 minutes in planning, reviewing documentation, counseling the patient, and discussing with other team members." ASSESSMENT ASSESSMENT Assessment Visit Coding STANDARD RES Billing Provider: GLENDA PASTRANA MD Date of Service if different f: Jul 05, 2025 Common Visit Codes: 13588-WYU/OBS DISCH DAY >30min CRISTIN VALLADARES Jul 05, 2025 17:18 GLENDA PASTRANA MD Jul 06, 2025 23:38
== END 2025-07-05 19:30 | disposition home or self-care (01) | DRG 179 ==
LOC: ER 15:25 → OVERFLOW 19:44 → WEST WING 19:46 → OVERFLOW 19:46 → WEST WING 22:28
PROVIDERS: ADMIT Internal Medicine
DX: J15.69 Pneumonia due to other Gram-negative bacteria (principal); E03.9 Hypothyroidism, unspecified; J15.9 Unspecified bacterial pneumonia; F32.A Depression, unspecified; G40.909 Epilepsy, unspecified, not intractable, without status epilepticus; J98.4 Other disorders of lung; Z20.822 Contact with and (suspected) exposure to COVID-19; K21.9 Gastro-esophageal reflux disease without esophagitis; F41.9 Anxiety disorder, unspecified; F90.9 Attention-deficit hyperactivity disorder, unspecified type; Z86.73 Personal history of transient ischemic attack (TIA), and cerebral infarction without residual deficits; Z90.710 Acquired absence of both cervix and uterus
CPT/HCPCS: 36415; 71045; 80048; 80053; 80076; 81001; 83690; 83880; 84436; 84439; 84443; 84480; 84481; 84702; 85025; 87426; 87804; 93005; 94640; G0378; J1885